=== PATIENT | female | born 1980 | race Caucasian/White ===

== ENCOUNTER 2023-04-14 08:01 | Emergency (ER) | payer OTHER, SELFPAY ==
[2023-04-14 08:02] VITALS: BP 172/103
[2023-04-14 08:29] VITALS: BP 142/89
[2023-04-14 08:30] VITALS: BP 142/89; BMI 42.8
--- NOTE | 2023-04-14 08:31 | ED.GENMED ---
History of Present Illness
General
Chief Complaint: Weakness
Source: patient
Exam Limitations: none
Time Seen by Provider: 04/14/23 08:21
Nursing documentation reviewed up to this point in time: agreed with
Travel History
Have you had any contact with someone who has COVID-19?: No
Do you have any symptoms of coronavirus? Fever > 100 degrees, chills, cough, shortness of breath, sore throat, loss of taste or smell, muscle aches, or headache?: No
History of Present Illness
History of Present Illness:
Patient without any significant past medical history, presents to ED secondary to sudden onset of nausea, generalized fatigue, knee/ankle pain, and shortness of breath with ambulation, shortly after waking up this morning. Denies chest pain.
Denies vomiting or diarrhea. Denies sore throat. Denies coughing. Denies headache. Denies blurred vision. Denies dizziness. Denies loss of sensation or weakness. Denies difficulty with speech. Patient states that she did not have any
aforementioned symptoms last night when she when she went to sleep. Of note, 3 weeks ago, patient herself along with multiple for members experience 'flulike' symptoms, which now has resolved. Patient is an ex smoker. There is no family history
of heart disease or blood clots. In addition, patient states that secondary to lack of insurance, she has not seen her family doctor for some time. And patient also reports having gained approximately 100 pounds of weight over the past 2 years.
Past History
Past History
ED Past Medical History: None
ED Past Surgical History: and Gynecological
Social History
Tobacco: Former smoker
Alcohol: Occasional
Drug: None
Personal:
Living: with family
Review of Systems
Review of Systems
Allergies reviewed?: Yes
All Other Systems: ROS reviewed and negative except as documented in HPI and ROS
Constitutional: Reports no symptoms; Denies fever or chills
EENT: Reports no symptoms; Denies sore throat
Respiratory: Reports trouble breathing; Denies cough
Cardiac: Reports no symptoms; Denies chest pain, diaphoresis or palpitations
ABD/GI: Reports nausea; Denies vomiting or diarrhea
: Reports no symptoms
Musculoskeletal: Reports joint pain
Skin: Reports no symptoms
Neurological: Reports no symptoms; Denies dizzy, headache or weakness
Phy Exam
Physical Exam
Physical Exam:
Physical Exam
General: no apparent distress, not acutely ill. afebrile. overweight.
Head: nc/at. eomi
Neck: supple. no meningeal signs. normal posterior pharynx
Heart: s1/s2 regular rate and rhythm, no murmur. equal radial pulses.
Lungs: no acute respiratory distress. clear bilaterally
Abdomen: normal bowel sounds. not tender.
Neuro: alert and oriented. no focal neurological deficits
Skin: no rash
Psychiatric: well kept. interactive and cooperative
Extremities: no edema. no calf tenderness.
Course
Orders/Labs/Results
Orders:
Orders
04/14/23 08:30
Electrocardiogram (*1) Urgent
Reason for Study: Shortness of Breath
EKG- Treatment ONCE
Test Result ONCE
04/14/23 08:31
CR Chest - 2 Views Urgent
Comment:
Reason For Exam: sob
04/14/23 08:38
COVID-19 Antigen Urgent
Source: Nasal Swab
Complete Blood Count/With Diff Urgent
Comprehensive Metabolic Panel Urgent
D-Dimer Urgent
HCG, Serum Qualitative Screen Urgent
Lyme Progressive Urgent
Magnesium Urgent
NT-proBNP Urgent
TSH Urgent
Troponin I Urgent
Influenza A+B Rapid Molecular Urgent
MARIA T Source: Nasal Swab
Specimen Description:
04/14/23 10:37
Urinalysis Reflex To Culture Urgent
Date Specimen was Collected: 02/09/24
Time Specimen was Collected: 10:35
Urine Microscopic Reflex Cult Urgent
Urine Culture Urgent
MARIA T Source: U
Specimen Description:
Date Specimen was Collected: 04/14/23
Time Specimen was Collected: 10:35
Abnormal Lab Results
04/14/23 04/14/23
08:38 10:37
Glucose 107 H mg/dl
(70-99)
Leukocyte Esterase Rfl 2+ A
(Negative)
Urine WBC (Reflex) 11-15 A /HPF
(0-5)
Urine Bacteria (Reflex) Few A
(Negative)
04/14/23 08:38
04/14/23 08:38
Vital Signs
Initial and Last Documented VS:
Initial Vital Signs
Temp Pulse Resp BP Pulse Ox
98.8 F 77 16 172/103 99
04/14/23 08:02 04/14/23 08:02 04/14/23 08:02 04/14/23 08:02 04/14/23 08:02
Last Documented Vital Signs
Temp Pulse Resp BP Pulse Ox
98.8 F 76 15 124/91 97
04/14/23 08:02 04/14/23 11:00 04/14/23 11:00 04/14/23 11:00 04/14/23 11:00
MDM/Problems Addressed
MDM/Problems Addressed:
Patient with an unremarkable workup in ED, including blood work, EKG, chest x-ray. Initially elevated blood pressure gradually improved on observation.
UA noted, however, patient without any urinary symptoms. As such, will withhold abx at this time.
Urine culture pending.
Pt will be referred to [facility], as she is uninsured for further evaluation and treatment, as outpatient.
*EKG
Interpreted by ED Provider?: Yes
EKG Intrepretation Date: 04/14/23
Heart Rate: 74
Rate: normal
Rhythm: sinus
Thomas: normal axis
Interval: normal interval
QRS Pattern: normal QRS
*Critical Care Note
Total Time (30-74mins, 75-104mins- exclusive of procedures): Not Applicable
ED Attending Note
-
Portions of this chart may have been created with voice recognition software.� Occasional wrong word or��sound alike� substitutions may have occurred due to the inherent limitations of voice recognition software.
Discharge Plan
Departure
Patient Disposition: Home (Routine Discharge)
Date of Disposition: 04/14/23
Time of Disposition: 11:40
Patient with high blood pressure during this ER visit?: Yes
Discharge Problem:
Weakness
Instructions: Generalized Weakness (DC)
Prescriptions:
No Action
No Current Medications
0
Referrals:
[facility] [Outside]
NONE,* [Family Provider] -
Activity Restrictions/Additional Instructions:
As discussed, please follow-up with referred medical clinic for further evaluation and treatment. Please return to ED with worsening symptoms.
Interventions
Interventions:
*Risk Screen - Suicide Last Done: 04/14/23 08:02
*General Assessment Last Done: 04/14/23 08:02
*Neglect/Abuse Screening Last Done: 04/14/23 08:02
ED- Fall Risk Assessment Last Done: 04/14/23 08:30
*ED COVID-19 Vaccine History Last Done: 04/14/23 08:30
*Nursing Disposition Last Done: 04/14/23 12:00
ED- Cardiac Assessment Last Done: 04/14/23 08:30
ED- Neurological Assessment Last Done: 04/14/23 08:30
ED- Pulmonary Assessment Last Done: 04/14/23 08:30
Discharge Date and Time
Discharge Date/Time: 04/14/23 12:00
[2023-04-14 08:57] LABS: % Basophils 0.3 % (0-2); % Eosinophils 1.3 % (0-6); % Immature Granulocytes 0.5 % (0-0.5); % Lymphocytes 25.1 % (20.5-51.1); % Monocytes 6.5 % (1.7-9.3); % Neutrophils 66.3 % (42.2-75.2); Absolute Eosinophils 0.1 10^3/uL (0-0.7); Absolute Lymphocytes 1.5 10^3/uL (1.2-3.4); Absolute Monocytes 0.4 10^3/uL (0.1-0.6); Absolute Neutrophils 4.1 10^3/uL (1.4-6.5); Hematocrit 37.8 % (37.0-47.0); Hemoglobin 12.9 g/dL (12.0-16.0); Mean Corp Hgb Conc. 34.1 g/dL (33.0-37.0); Mean Corpuscular Hgb 28.6 pg (27.0-31.0); Mean Corpuscular Volume 83.8 fL (81.0-99.0); Mean Platelet Volume 9.2 fL (7.4-10.4); Nucleated Red Blood Cells % 0 %; Platelet Count 298 10^3/uL (130-400); Red Blood Cell Count 4.51 10^6/uL (4.20-5.40); White Blood Cell Count 6.1 10^3/uL (4.8-10.8)
[2023-04-14 09:00] VITALS: BP 132/86
[2023-04-14 09:05] LABS: HCG, Serum Qualitative Screen Negative
[2023-04-14 09:07] LABS: D-Dimer 0.41 ug/mlFEU (0.00-0.50)
[2023-04-14 09:20] LABS: ALT (SGPT) 24 U/L (0-35); AST (SGOT) 26 U/L (14-36); Alkaline Phosphatase 113 U/L (38-126); Blood Urea Nitrogen 17 mg/dl (7-17); Calcium 9.4 mg/dl (8.4-10.2); Carbon Dioxide 25 mmol/L (22-30); Chloride 101 mmol/L (98-107); Estimated Creatinine Clearance > 125 ml/min; Glucose 107 mg/dl (70-99); Magnesium 2.1 mg/dl (1.6-2.3); Potassium 4.7 mmol/L (3.5-5.1); Sodium 136 mmol/L (135-145); Total Bilirubin 0.6 mg/dl (0.2-1.3); Total Protein 6.9 g/dl (6.3-8.2); eGFR > 60.00
[2023-04-14 09:23] LABS: COVID-19 Antigen Negative (Negative)
[2023-04-14 09:30] LABS: NT-proBNP < 20.0 pg/ml; Troponin I < 0.012 ng/ml
[2023-04-14 09:49] LABS: TSH 2.34 uIU/ml (0.47-4.68)
[2023-04-14 10:34] VITALS: BP 128/90
[2023-04-14 10:44] LABS: Urine Albumin Negative (Neg - Trace); Urine Bilirubin Negative (Negative); Urine Character Clear (Clear); Urine Color Yellow; Urine Glucose Negative (Negative); Urine Ketone Negative (Negative); Urine Leukocyte 2+ (Negative); Urine Nitrite Negative (Negative); Urine Occult Blood Negative (Negative); Urine Specific Gravity 1.015 (<1.030); Urine Urobilinogen Negative (Neg - 1+); Urine pH 6.5 (5.0-9.0)
[2023-04-14 11:00] VITALS: BP 124/91
[2023-04-14 11:25] LABS: Urine Mucus Few; Urine Squamous Cell >30 /LPF (Few)
[2023-04-14 11:26] LABS: Urine Amorphous Seen; Urine Bacteria Few (Negative); Urine Red Blood Cell 0-2 /HPF (0-2)
[2023-04-17 16:46] LABS: Lyme Antibody Screen, EIA Negative (Negative)
== END 2023-04-14 12:00 | disposition home or self-care (01) ==
LOC: EMR 08:01
PROVIDERS: EMERGENCY PHYSICIAN Emergency Medicine
DX: R53.1 Weakness (principal); R06.02 Shortness of breath; R11.0 Nausea; R53.83 Other fatigue; M25.569 Pain in unspecified knee; M25.579 Pain in unspecified ankle and joints of unspecified foot; Z11.52 Encounter for screening for COVID-19; R03.0 Elevated blood-pressure reading, without diagnosis of hypertension; Z87.891 Personal history of nicotine dependence; Z88.5 Allergy status to narcotic agent
CPT/HCPCS: 99283; 71046; 80053; 81003; 81015; 83735; 83880; 84443; 84484; 84703; 85025; 85379; 86618; 87086; 87502; 87811; 93005